=== PATIENT | female | born 1975 | race Caucasian/White ===

== ENCOUNTER 2017-11-26 21:35 | Inpatient (IN) | payer OTHER ==
[~2017-11-26] VITALS: Ht 157.5 cm; Wt 49.3 kg
[2017-11-26] MEDS ORDERED: MELA1TAB5 PO (22:00)
[2017-11-26] MEDS ORDERED: DIME1CAP2 PO (22:00)
[2017-11-26] MEDS ORDERED: ZOLP10TA PO (22:00)
[2017-11-26] MEDS ORDERED: TOPI50TA16 PO (22:00)
[2017-11-26] MEDS ORDERED: CITA20TA9 PO (22:00)
--- NOTE | 2017-11-26 23:09 | DIAGNOSTIC IMAGING REPORT ---
ABDOMINAL ULTRASOUND, RIGHT UPPER QUADRANT HISTORY: back/right-sided abdominal pain today with minimal LFT elevation. COMPARISON: None. FINDINGS: Pancreas: The pancreas demonstrates a normal echotexture. Liver: Unremarkable. Gallbladder: Mildly distended. No gallbladder wall thickening. No gallstones. Suspect a small amount of gallbladder sludge. CBD: Distended up to 8 mm. Right kidney: No hydronephrosis. IMPRESSION: 1. The common bile duct is distended up to 8 mm. This is considered abnormal for the patient's age. Consider follow-up ERCP/MRCP to exclude a distal obstruction. 2. Distended gallbladder. No gallbladder wall thickening. No gallstones. Electronically signed by: Case Niño M.D. 11/26/2017 11:08 PM Dictated Date/Time: 11/26/2017 11:06 PM
[2017-11-27] MEDS ORDERED: MoRPHine SULFATE 4 MG/ML 1 ML CARP\\VIAL IV PRN
[2017-11-27] MEDS ORDERED: IV FLUIDS COMPLETED PRN (00:30)
[2017-11-27 00:33] VITALS: BP 96/62; PULSE 70; TEMP 36.6; O2SAT 100; Ht 157.5 cm; Wt 49.3 kg
[2017-11-27] MEDS: ONDANSETRON INJ 2 MG/ML 2 ML VIAL IV PRN ×3 (00:41→22:44)
[2017-11-27 01:00] VITALS: O2SAT 100
[2017-11-27] MEDS ORDERED: SODIUM CHLORIDE 0.9% 1000ML 1,000 ML IV SCH (01:00)
[2017-11-27] MEDS ORDERED: ZOLPIDEM TARTRATE 5 MG TAB PO SCH (01:30)
[2017-11-27] MEDS ORDERED: NURSING VERBAL MED ORDER ONE ×3 (01:30→21:00)
[2017-11-27] MEDS ORDERED: INFLUENZA VIRUS QUAD VACCINE 0.5 ML SYR IM. ONE (03:00)
[2017-11-27] MEDS ORDERED: INFLUENZA ADMINISTRATION CHARGE ONE (03:00)
--- NOTE | 2017-11-27 03:02 | HISTORY & PHYSICAL EXAMINATION ---
DATE OF ADMISSION: 11/27/2017 CHIEF COMPLAINT: Abdominal pain and back pain. HISTORY OF PRESENT ILLNESS: This is a 42-year-old female who was transferred from [facility]. She had 5 episodes of what she described as violent vomiting yesterday beginning after eating at [employer]. She has no hematemesis. The nausea and vomiting resolved. Then at 5:00 this Tuesday evening she had the acute onset of what she described as back spasms. It extended along the entire length of her thoracic and lumbar spine bilaterally. It was sharp and made it difficult for her to move. The pain then radiated from her back and around in the subcostal regions bilaterally with the left side being somewhat worse than the right. There was no nausea with that. She had low grade temperature when she had her vomiting. She has not had melena or hematochezia. She denies diarrhea. She has not been constipated. There is no dysuria or hematuria. During the workup, at [facility], on Tuesday, she had a total bilirubin of 1.2 with an AST of 22, ALT of 22, and alkaline phosphatase of 88. Those labs were repeated Tuesday and her bilirubin at that time was 1.4 with an AST of 133 and ALT of 76, and alkaline phosphatase of 89. Her urinalysis both showed an increased specific gravity, but there was no blood seen. She had no imaging done. PAST MEDICAL HISTORY: For multiple sclerosis. PAST SURGICAL HISTORY: Includes a D&C, removal of cyst from her foot and a septoplasty. MEDICATIONS: At home included Celexa, Tecfidera, melatonin, Topamax and Ambien. ALLERGIES: She has no allergies. SOCIAL HISTORY: She does not smoke or chew tobacco and she drinks alcohol on rare occasion. PHYSICAL EXAMINATION: GENERAL: Reveals a well-developed, well-nourished female who appears in no acute distress. VITAL SIGNS: Blood pressure is 100/60, pulse is 80, respirations 18, temperature 37.3, pulse oximetry 96% on room air. HEENT: Reveals sclerae to be anicteric. Mucous membranes are moist. NECK: Supple, with no adenopathy. BACK: He has no spinal or CVA tenderness. LUNGS: Clear. HEART: Regular. ABDOMEN: Has normoactive bowel sounds, soft, nondistended with tenderness in the upper abdomen bilaterally with the left side predominating. EXTREMITIES: Reveal no edema. LABORATORY DATA: Gallbladder was performed here. It shows a common bile duct measuring 8 mm. The gallbladder was distended, but there was no gallbladder wall thickening. There was no cholelithiasis. ASSESSMENT AND PLAN: The patient has had abdominal discomfort. I am not sure that it was related to the nausea and vomiting since that has completely resolved. She does have mildly dilated common bile duct with mild elevation of her LFTs. An ERCP or MRCP was recommended. She continues to have mild upper abdominal pain. I am going to put her in the hospital and order an MRCP. She will be kept n.p.o. We will continue to monitor serially her liver function tests. CHANTELLE
[2017-11-27 05:38] LABS: BASO % 0.6 %; BASO ABS # 0.02 K/uL (0-0.2); EOS % 3.3 %; EOS ABS # 0.12 K/uL (0-0.5); HEMATOCRIT 26.7 % (37-47); HEMOGLOBIN 8.8 g/dL (12.0-16.0); IG# 0.01 K/uL (0.00-0.02); LYMPH % 30.6 %; LYMPH ABS # 1.11 K/uL (1.2-3.4); MEAN CORPUSCULAR HEMOGLOBIN 23.4 pg (25-34); MEAN PLATELET VOLUME 9.9 fL (7.4-10.4); MONO % 8.8 %; MONO ABS # 0.32 K/uL (0.11-0.59); NEUT % 56.4 %; NEUT ABS # 2.05 K/uL (1.4-6.5); PLATELET COUNT 215 K/uL (130-400); RED CELL DISTRIBUTION WIDTH CV 14.8 % (11.5-14.5); RED CELL DISTRIBUTION WIDTH SD 37.2 fL (36.4-46.3); WHITE BLOOD COUNT 3.63 K/uL (4.8-10.8)
[2017-11-27 06:08] LABS: CALCIUM 7.7 mg/dl (8.5-10.1); CREATININE 0.46 mg/dl (0.60-1.20); POTASSIUM 3.2 mmol/L (3.5-5.1)
[2017-11-27 06:11] LABS: TOTAL PROTEIN 5.7 gm/dl (6.4-8.2)
[2017-11-27 07:00] VITALS: BP 97/58; PULSE 89; TEMP 36.6; O2SAT 95
[2017-11-27] MEDS: PANTOprazole INJ 40 MG in SYRINGE 0 ML IV SCH (09:45)
--- NOTE | 2017-11-27 10:33 | DIAGNOSTIC IMAGING REPORT ---
MRCP CLINICAL HISTORY: Abdominal pain with mild elevated LFT's with 8mm CBD on US. COMPARISON STUDY: Right upper quadrant ultrasound November 26, 2017. TECHNIQUE: Utilizing a 1.5 Parul magnet and dedicated coil, multiplanar, multi echo imaging of the upper abdomen was performed utilizing heavily T2 weighted pulsing sequences. No intravenous contrast was administered. FINDINGS: The gallbladder is moderately distended. There is no pericholecystic fluid. No gallstones are identified on this examination. There is no intrahepatic biliary ductal dilatation. The common hepatic duct is slightly dilated, measuring 8 mm. The caliber of the common bile duct is normal. The common bile tapers normally. No choledocholithiasis is identified. There is no pancreatic ductal dilatation. There is a pancreas divisum. No peripancreatic fluid or infiltration is noted. Unenhanced images of liver, spleen, adrenal glands and kidneys are unremarkable. There is no hydronephrosis. Note is made of susceptibility artifact which projects over the distal esophagus. This is located along the right lateral aspect of the distal descending thoracic aorta. IMPRESSION: 1. No choledocholithiasis. Slight dilatation of the common hepatic duct without intrahepatic biliary ductal dilatation. Normal tapering of the common bile duct. No evidence for a significant obstruction by MRI. 2. Moderate gallbladder distention. No gallstones. No gallbladder wall thickening. No pericholecystic fluid. 3. Pancreas divisum. 4. Susceptibility artifact projecting over the distal esophagus/posterior inferior mediastinum. This may be postsurgical or represent a foreign body and could be correlated prior surgical history. Electronically signed by: Tai Haynes M.D. 11/27/2017 10:32 AM Dictated Date/Time: 11/27/2017 10:18 AM
--- NOTE | 2017-11-27 12:36 | Surgery Progress Note ---
Surgery Progress Note Date of Service Nov 27, 2017. Subjective No nausea, No vomiting Abdomen with mild abdominal discomfort Had another episode of "spasm" in her back lasdt night but it was only in the lumbar region Objective Vital Signs: Date Time Temp Pulse Resp B/P (MAP) Pulse Ox O2 Delivery O2 Flow Rate FiO2 11/27/17 08:10 Room Air 11/27/17 07:00 36.6 89 18 97/58 (71) 95 Room Air 11/27/17 01:00 100 Room Air 11/27/17 00:33 36.6 70 18 96/62 100 Room Air 11/27/17 00:20 82 102/60 98 11/26/17 23:23 80 18 100/60 96 Room Air 11/26/17 21:35 37.3 85 16 104/59 99 Room Air Abdomen: normal bowel sounds, non distended, soft, + tenderness (upper abdomen left greater than right) Laboratory Results: Results Past 24 Hours Test 11/27/17 05:16 Range/Units White Blood Count 3.63 4.8-10.8 K/uL Red Blood Count 3.76 4.2-5.4 M/uL Hemoglobin 8.8 12.0-16.0 g/dL Hematocrit 26.7 37-47 % Mean Corpuscular Volume 71.0 80-100 fL Mean Corpuscular Hemoglobin 23.4 25-34 pg Mean Corpuscular Hemoglobin Concent 33.0 32-36 g/dl Platelet Count 215 130-400 K/uL Mean Platelet Volume 9.9 7.4-10.4 fL Neutrophils (%) (Auto) 56.4 % Lymphocytes (%) (Auto) 30.6 % Monocytes (%) (Auto) 8.8 % Eosinophils (%) (Auto) 3.3 % Basophils (%) (Auto) 0.6 % Neutrophils # (Auto) 2.05 1.4-6.5 K/uL Lymphocytes # (Auto) 1.11 1.2-3.4 K/uL Monocytes # (Auto) 0.32 0.11-0.59 K/uL Eosinophils # (Auto) 0.12 0-0.5 K/uL Basophils # (Auto) 0.02 0-0.2 K/uL RDW Standard Deviation 37.2 36.4-46.3 fL RDW Coefficient of Variation 14.8 11.5-14.5 % Immature Granulocyte % (Auto) 0.3 % Immature Granulocyte # (Auto) 0.01 0.00-0.02 K/uL Basophilic Stippling 1+ Anisocytosis PRESENT Microcytosis PRESENT Sodium Level 140 136-145 mmol/L Potassium Level 3.2 3.5-5.1 mmol/L Chloride Level 112 98-107 mmol/L Carbon Dioxide Level 23 21-32 mmol/L Anion Gap 5.0 3-11 mmol/L Blood Urea Nitrogen 9 7-18 mg/dl Creatinine 0.46 0.60-1.20 mg/dl Est Creatinine Clear Calc Drug Dose 125.3 ml/min Estimated GFR () 143.2 Estimated GFR (Non- 123.6 BUN/Creatinine Ratio 19.9 10-20 Random Glucose 87 70-99 mg/dl Calcium Level 7.7 8.5-10.1 mg/dl Total Bilirubin 1.0 0.2-1 mg/dl Aspartate Amino Transf (AST/SGOT) 200 15-37 U/L Alanine Aminotransferase (ALT/SGPT) 158 12-78 U/L Alkaline Phosphatase 91 45-117 U/L Total Protein 5.7 6.4-8.2 gm/dl Albumin 3.0 3.4-5.0 gm/dl Globulin 2.7 2.5-4.0 gm/dl Albumin/Globulin Ratio 1.1 0.9-2 Diagnostic Interpretation: [~ rep ct add3]] MRCP CLINICAL HISTORY: Abdominal pain with mild elevated LFT's with 8mm CBD on US. COMPARISON STUDY: Right upper quadrant ultrasound November 26, 2017. TECHNIQUE: Utilizing a 1.5 Parul magnet and dedicated coil, multiplanar, multi echo imaging of the upper abdomen was performed utilizing heavily T2 weighted pulsing sequences. No intravenous contrast was administered. FINDINGS: The gallbladder is moderately distended. There is no pericholecystic fluid. No gallstones are identified on this examination. There is no intrahepatic biliary ductal dilatation. The common hepatic duct is slightly dilated, measuring 8 mm. The caliber of the common bile duct is normal. The common bile tapers normally. No choledocholithiasis is identified. There is no pancreatic ductal dilatation. There is a pancreas divisum. No peripancreatic fluid or infiltration is noted. Unenhanced images of liver, spleen, adrenal glands and kidneys are unremarkable. There is no hydronephrosis. Note is made of susceptibility artifact which projects over the distal esophagus. This is located along the right lateral aspect of the distal descending thoracic aorta. IMPRESSION: 1. No choledocholithiasis. Slight dilatation of the common hepatic duct without intrahepatic biliary ductal dilatation. Normal tapering of the common bile duct. No evidence for a significant obstruction by MRI. 2. Moderate gallbladder distention. No gallstones. No gallbladder wall thickening. No pericholecystic fluid. 3. Pancreas divisum. 4. Susceptibility artifact projecting over the distal esophagus/posterior inferior mediastinum. This may be postsurgical or represent a foreign body and could be correlated prior surgical history. Assessment & Plan etiology of symptomatology still under workup Biliary tree does not seem to be involved ? contribution of pancreatic divisum Anemia, has thalassemia trait Consult internal medicine and GI for opinion
[2017-11-27] MEDS: NSS + 20MEQ KCL 1000ML 1,000 ML IV SCH (13:16)
[2017-11-27 15:02] VITALS: BP 100/63; PULSE 84; TEMP 36.7; O2SAT 100
--- NOTE | 2017-11-27 15:25 | Medical Consult ---
Consultation Date of Consultation: Nov 27, 2017. Attending Physician: Nelson Barber M.D. Reason for Consultation: Abd pain History of Present Illness 42 y/o F who was a transfer here last night from the [place] ED. She was accepted by Dr. Barber of general surgery for what was thought to be an acute cholecystitis, however GB US and MRCP were both negative for this issue. Pt states she has had ongoing nausea without emesis for many years. "That is just how I live." She in not sure why she has this and has never seen GI for this issue. On Tuesday after eating at [employer], pt had several episodes of n /v throughout the night. She had no diarrhea or abd pain. This resolved yesterday, however around 5pm yesterday she noted that she started to have R sided back spasm-like pains that would radiate around to the front of her entire abd. This has not happened prior. She does not have abd pain separate from the back pain. Pt denies fever, SOB, chest pain, LE pain or swelling. UA as OSH was noted for 3+ ketones, but no blood or signs of infection. Past Medical/Surgical History MS Depression Insomnia Headaches Family History Denies hx of abd issues Social History Smoking Status: Former Smoker (quit 10 years ago) Alcohol Use: none Drug Use: none Allergies Coded Allergies: No Known Allergies (Unverified , 11/26/17) Current Inpatient Medications Current Inpatient Medications Medications (Trade) Dose Ordered Sig/Schuyler Route Start Time Stop Time Status Last Admin Dose Admin Morphine Sulfate (MoRPHine SULFATE INJ) 4 mg Q2H PRN IV 11/27/17 00:00 12/11/17 00:00 11/27/17 00:42 4 MG Ondansetron HCl (Zofran Inj) 4 mg Q6H PRN IV 11/27/17 00:00 12/27/17 00:00 11/27/17 00:41 4 MG Pantoprazole Sodium 40 mg/ Syringe 10 ml @ 5 mls/min DAILY@11 IV 11/27/17 11:00 11/30/17 11:01 11/27/17 09:45 5 MLS/MIN Potassium Chloride/Sodium Chloride 1,000 ml @ 120 mls/hr Q8H20M IV 11/27/17 13:00 2/27/18 12:59 11/27/17 13:16 120 MLS/HR Review of Systems Pertinent positives and negatives reviewed in HPI--all others negative Physical Exam Date Time Temp Pulse Resp B/P (MAP) Pulse Ox O2 Delivery O2 Flow Rate FiO2 11/27/17 15:02 36.7 84 16 100/63 (75) 100 Room Air 11/27/17 08:10 Room Air 11/27/17 07:00 36.6 89 18 97/58 (71) 95 Room Air 11/27/17 01:00 100 Room Air 11/27/17 00:33 36.6 70 18 96/62 100 Room Air 11/27/17 00:20 82 102/60 98 11/26/17 23:23 80 18 100/60 96 Room Air 11/26/17 21:35 37.3 85 16 104/59 99 Room Air General Appearance: no apparent distress, + thin Head: normocephalic, atraumatic Eyes: normal inspection, sclerae normal Respiratory/Chest: normal breath sounds, no respiratory distress Cardiovascular: regular rate, rhythm, no edema Abdomen/GI: soft, + tenderness (diffuse) Back: + right CVA tenderness Extremities/Musculoskelatal: no calf tenderness, no pedal edema Neurologic/Psych: alert, normal mood/affect, oriented x 3 Skin: normal color, warm/dry Laboratory Results Last 24 Hours Test 11/27/17 05:16 White Blood Count 3.63 K/uL Red Blood Count 3.76 M/uL Hemoglobin 8.8 g/dL Hematocrit 26.7 % Mean Corpuscular Volume 71.0 fL Mean Corpuscular Hemoglobin 23.4 pg Mean Corpuscular Hemoglobin Concent 33.0 g/dl Platelet Count 215 K/uL Mean Platelet Volume 9.9 fL Neutrophils (%) (Auto) 56.4 % Lymphocytes (%) (Auto) 30.6 % Monocytes (%) (Auto) 8.8 % Eosinophils (%) (Auto) 3.3 % Basophils (%) (Auto) 0.6 % Neutrophils # (Auto) 2.05 K/uL Lymphocytes # (Auto) 1.11 K/uL Monocytes # (Auto) 0.32 K/uL Eosinophils # (Auto) 0.12 K/uL Basophils # (Auto) 0.02 K/uL RDW Standard Deviation 37.2 fL RDW Coefficient of Variation 14.8 % Immature Granulocyte % (Auto) 0.3 % Immature Granulocyte # (Auto) 0.01 K/uL Basophilic Stippling 1+ Anisocytosis PRESENT Microcytosis PRESENT Sodium Level 140 mmol/L Potassium Level 3.2 mmol/L Chloride Level 112 mmol/L Carbon Dioxide Level 23 mmol/L Anion Gap 5.0 mmol/L Blood Urea Nitrogen 9 mg/dl Creatinine 0.46 mg/dl Est Creatinine Clear Calc Drug Dose 125.3 ml/min Estimated GFR () 143.2 Estimated GFR (Non- 123.6 BUN/Creatinine Ratio 19.9 Random Glucose 87 mg/dl Calcium Level 7.7 mg/dl Total Bilirubin 1.0 mg/dl Aspartate Amino Transf (AST/SGOT) 200 U/L Alanine Aminotransferase (ALT/SGPT) 158 U/L Alkaline Phosphatase 91 U/L Total Protein 5.7 gm/dl Albumin 3.0 gm/dl Globulin 2.7 gm/dl Albumin/Globulin Ratio 1.1 Lipase 93 U/L Assessment & Plan 42 y/o F who was transferred from [place] ED on 11/26 for abd pain Abd pain: thought to be related to GB on transfer, however US and MRCP are WNL Lipase WNL Other LFTs with slight elevation, pancreas noted to be WNL on imaging UA neg at OSH, but pt with clear and significant R CVA TTP, will repeat CBC, PRP WNL CT AP pending GI c/s pending HypoK: replace and monitor MS: Stable, pt is fully functional at this time Depression: continue home meds Anemia: chronic, hx of thalassemia NPO until imaging and GI c/s complete
--- NOTE | 2017-11-27 17:51 | Medical Consult ---
Consultation Note Date of Service Nov 27, 2017. Consultation Note Reason for consult: nausea, ? choledocholithiasis 42 yo female with PMH sig for MS. She has a h/o chronic nausea and mild upper abdominal discomfort. She was in [facility] until , when she had mild nausea. She had more severe nausea on Tuesday, associated with several episodes of vomiting. On Tuesday she developed severe pain in upper mid back that would radiate to epigastrium; pain is throughout the day, waxes and wanes, described as a spasm or cramp. She was noted to have LFT elevation which she describes as new; per her report, LFT's most recently checked in September, as part of monitoring of her MS meds. Took APAP 500 mg twice in the past 2 days; denies any other tylenol exposure. Denies NSAID use. No recent med changes. No recet risk fx for viral hep. Reports unusually dark urine for 2 days; denies pruritus. Her labs show transaminases in the 200's with normal alk phos and mildly increased total bili and normal lipase. W/u to date has included MRCP and uls which show distended gb with ? sludge and CBD 8 mm. UA was neg for bilirubin but positive for urobilinogen She received morphine in the hospital with worsening of her pain shortly thereafter. Past Medical/Surgical History MS Depression Insomnia Headaches Family History Denies hx of abd issues Social History Smoking Status: Former Smoker (quit 10 years ago) Alcohol Use: none Drug Use: none Allergies Coded Allergies: No Known Allergies (Unverified , 11/26/17) Current Inpatient Medications Current Inpatient Medications Medications (Trade) Dose Ordered Sig/Schuyler Route Start Time Stop Time Status Last Admin Dose Admin Morphine Sulfate (MoRPHine SULFATE INJ) 4 mg Q2H PRN IV 11/27/17 00:00 12/11/17 00:00 11/27/17 00:42 4 MG Ondansetron HCl (Zofran Inj) 4 mg Q6H PRN IV 11/27/17 00:00 12/27/17 00:00 11/27/17 00:41 4 MG Pantoprazole Sodium 40 mg/ Syringe 10 ml @ 5 mls/min DAILY@11 IV 11/27/17 11:00 11/30/17 11:01 11/27/17 09:45 5 MLS/MIN Potassium Chloride/Sodium Chloride 1,000 ml @ 120 mls/hr Q8H20M IV 11/27/17 13:00 12/27/17 12:59 11/27/17 13:16 120 MLS/HR Review of Systems Pertinent positives and negatives reviewed in HPI--all others negative Physical Exam Date Time Temp Pulse Resp B/P (MAP) Pulse Ox O2 Delivery O2 Flow Rate FiO2 11/27/17 15:02 36.7 84 16 100/63 (75) 100 Room Air 11/27/17 08:10 Room Air 11/27/17 07:00 36.6 89 18 97/58 (71) 95 Room Air 11/27/17 01:00 100 Room Air 11/27/17 00:33 36.6 70 18 96/62 100 Room Air 11/27/17 00:20 82 102/60 98 11/26/17 23:23 80 18 100/60 96 Room Air 11/26/17 21:35 37.3 85 16 104/59 99 Room Air General Appearance: Mild distress, thin, pleasant Head: normocephalic, atraumatic Eyes: normal inspection, sclerae normal Respiratory/Chest: normal breath sounds, no respiratory distress Cardiovascular: regular rate, rhythm, no edema Abdomen/GI: soft, + tenderness (diffuse) Back: unremarkable Extremities/Musculoskelatal: no calf tenderness, no pedal edema Neurologic/Psych: alert, normal mood/affect, oriented x 3 Skin: normal color, warm/dry Laboratory Results Last 24 Hours Test 11/27/17 05:16 11/27/17 17:05 White Blood Count 3.63 K/uL Red Blood Count 3.76 M/uL Hemoglobin 8.8 g/dL Hematocrit 26.7 % Mean Corpuscular Volume 71.0 fL Mean Corpuscular Hemoglobin 23.4 pg Mean Corpuscular Hemoglobin Concent 33.0 g/dl Platelet Count 215 K/uL Mean Platelet Volume 9.9 fL Neutrophils (%) (Auto) 56.4 % Lymphocytes (%) (Auto) 30.6 % Monocytes (%) (Auto) 8.8 % Eosinophils (%) (Auto) 3.3 % Basophils (%) (Auto) 0.6 % Neutrophils # (Auto) 2.05 K/uL Lymphocytes # (Auto) 1.11 K/uL Monocytes # (Auto) 0.32 K/uL Eosinophils # (Auto) 0.12 K/uL Basophils # (Auto) 0.02 K/uL RDW Standard Deviation 37.2 fL RDW Coefficient of Variation 14.8 % Immature Granulocyte % (Auto) 0.3 % Immature Granulocyte # (Auto) 0.01 K/uL Basophilic Stippling 1+ Anisocytosis PRESENT Microcytosis PRESENT Sodium Level 140 mmol/L Potassium Level 3.2 mmol/L Chloride Level 112 mmol/L Carbon Dioxide Level 23 mmol/L Anion Gap 5.0 mmol/L Blood Urea Nitrogen 9 mg/dl Creatinine 0.46 mg/dl Est Creatinine Clear Calc Drug Dose 125.3 ml/min Estimated GFR () 143.2 Estimated GFR (Non- 123.6 BUN/Creatinine Ratio 19.9 Random Glucose 87 mg/dl Calcium Level 7.7 mg/dl Total Bilirubin 1.0 mg/dl Aspartate Amino Transf (AST/SGOT) 200 U/L Alanine Aminotransferase (ALT/SGPT) 158 U/L Alkaline Phosphatase 91 U/L Total Protein 5.7 gm/dl Albumin 3.0 gm/dl Globulin 2.7 gm/dl Albumin/Globulin Ratio 1.1 Lipase 93 U/L Urine Color DK YELLOW Urine Appearance CLOUDY Urine pH 5.5 Urine Specific [place] 1.014 Urine Protein NEG Urine Glucose (UA) NEG Urine Ketones 2+ Urine Occult Blood 3+ Urine Nitrite NEG Urine Bilirubin NEG Urine Urobilinogen POS Urine Leukocyte Esterase NEG Assessment & Plan Back and Abd pain, incr LFT's - Unclear etiology of symptoms. Her description of colicky pain back pain that radiates to epigastrium, as well as GB distention, new LFT elevation, mildly increased CBD caliber, and h/o chronic hemolytic disease all may be c/w choledocholithiasis. DDX may include gastroenteritis, PUD, pancreatic pathology , or musculoskeletal pain involving the back. Will f/u CT to look for pancreatic pathology and consider EGD/EUS when can be arranged. - Given AST > ALT, will check CPK; also, given AST elevation, bili incerase, UA pos for urobil, and thalessemia --> check direct bili, hemolysis labs.
[2017-11-27] MEDS ORDERED: ZOLPIDEM TARTRATE 10 MG TAB PO PRN (20:00)
--- NOTE | 2017-11-27 20:30 | DIAGNOSTIC IMAGING REPORT ---
ABDOMEN AND PELVIS CT WITH IV AND ORAL CONTRAST CT DOSE: 274.78 mGy.cm HISTORY: Generalized abdominal pain. TECHNIQUE: Multiaxial CT images of the abdomen and pelvis were performed following the use of intravenous and oral contrast. A dose lowering technique was utilized adhering to the principles of ALARA. COMPARISON STUDY: MRCP 11/27/2017. FINDINGS: The lung bases are clear. No pneumoperitoneum. No pneumatosis. No suspicious lytic or blastic osseous lesions. The gallbladder and common hepatic duct remain mildly distended. Normal caliber common bile duct. The spleen, adrenal glands, and kidneys are unremarkable. No hydronephrosis. No retroperitoneal lymphadenopathy. The pancreas enhances normally. Pancreas divisum is noted. There are 2 subcentimeter hypodense lesions within the liver. These are located within the right hepatic lobe and are small to characterize. The bladder, uterus, bilateral ovaries are unremarkable. Trace pelvic free fluid. This is likely physiologic in a female. No bowel wall thickening or obstruction. Normal appendix. IMPRESSION: 1. Mildly distended gallbladder and mildly distended common hepatic duct. This remains unchanged. Normal caliber common bile duct. 2. No bowel wall thickening or obstruction. 3. Normal appendix. 4. Pancreas divisum. Electronically signed by: Case Niño M.D. 11/27/2017 8:28 PM Dictated Date/Time: 11/27/2017 7:57 PM
[2017-11-27] MEDS: ACETAMINOPHEN 325 MG TAB PO PRN (20:38)
[2017-11-27] MEDS: TOPIRAMATE 25 MG TAB PO SCH (20:39)
[2017-11-27] MEDS: CITALOPRAM 20 MG TAB PO SCH (20:39)
[2017-11-27 23:26] VITALS: BP 111/71; PULSE 72; TEMP 37.1; O2SAT 100
[2017-11-28] MEDS: NSS + 20MEQ KCL 1000ML 1,000 ML IV SCH ×3 (00:29→17:44)
[2017-11-28 07:20] VITALS: BP 97/59; PULSE 75; TEMP 36.3; O2SAT 97
[2017-11-28 07:25] LABS: BASO % 0.6 %; BASO ABS # 0.02 K/uL (0-0.2); EOS % 5.8 %; EOS ABS # 0.21 K/uL (0-0.5); HEMOGLOBIN 8.1 g/dL (12.0-16.0); LYMPH % 33.2 %; MEAN CORPUSCULAR HGB CONC 32.4 g/dl (32-36); MEAN PLATELET VOLUME 10.7 fL (7.4-10.4); MONO % 10.5 %; MONO ABS # 0.38 K/uL (0.11-0.59); NEUT % 49.9 %; PLATELET COUNT 219 K/uL (130-400); RED CELL DISTRIBUTION WIDTH CV 14.9 % (11.5-14.5); RED CELL DISTRIBUTION WIDTH SD 38.2 fL (36.4-46.3); RETIC COUNT % 2.9 % (0.5-2.0); WHITE BLOOD COUNT 3.61 K/uL (4.8-10.8)
[2017-11-28 07:56] LABS: ALBUMIN 2.6 gm/dl (3.4-5.0); ALKALINE PHOSPHATASE 75 U/L (45-117); ALT/SGPT 102 U/L (12-78); AST/SGOT 65 U/L (15-37); BLOOD UREA NITROGEN 3 mg/dl (7-18); CARBON DIOXIDE 19 mmol/L (21-32); CREATININE 0.31 mg/dl (0.60-1.20); GLUCOSE 84 mg/dl (70-99); POTASSIUM 3.4 mmol/L (3.5-5.1); SODIUM 144 mmol/L (136-145); TOTAL PROTEIN 5.1 gm/dl (6.4-8.2)
--- NOTE | 2017-11-28 10:13 | Surgery Progress Note ---
Surgery Progress Note Date of Service Nov 28, 2017. Subjective + bowel movement (2 loose stools last evening), + nausea, No vomiting No "spasm" pain today Had headache last night Objective Vital Signs: Date Time Temp Pulse Resp B/P (MAP) Pulse Ox O2 Delivery O2 Flow Rate FiO2 11/28/17 07:40 Room Air 11/28/17 07:20 36.3 75 16 97/59 (72) 97 Room Air 11/28/17 00:00 Room Air 11/27/17 23:26 37.1 72 18 111/71 (84) 100 Room Air 11/27/17 15:02 36.7 84 16 100/63 (75) 100 Room Air 11/27/17 15:00 Room Air Abdomen: normal bowel sounds, non distended, soft, + tenderness (mild tenderness in the upper abdomen) Laboratory Results: Results Past 24 Hours Test 11/27/17 17:05 11/27/17 18:25 11/28/17 06:50 Range/Units Urine Color DK YELLOW Urine Appearance CLOUDY CLEAR Urine pH 5.5 4.5-7.5 Urine Specific [place] 1.014 1.000-1.030 Urine Protein NEG NEG Urine Glucose (UA) NEG NEG Urine Ketones 2+ NEG Urine Occult Blood 3+ NEG Urine Nitrite NEG NEG Urine Bilirubin NEG NEG Urine Urobilinogen POS NEG Urine Leukocyte Esterase NEG NEG Urine WBC (Auto) 1-5 0-5 /hpf Urine RBC (Auto) >30 0-4 /hpf Urine Hyaline Casts (Auto) 0 0-5 /lpf Urine Epithelial Cells (Auto) >30 0-5 /lpf Urine Bacteria (Auto) NEG NEG Urine Pathogenic Casts 0 /lpf Total Bilirubin 0.8 0.6 0.2-1 mg/dl Direct Bilirubin 0.4 0-0.2 mg/dl Lactate Dehydrogenase 171 84-246 U/L Total Creatine Kinase 40 26-192 U/L White Blood Count 3.61 4.8-10.8 K/uL Red Blood Count 3.52 4.2-5.4 M/uL Hemoglobin 8.1 12.0-16.0 g/dL Hematocrit 25.0 37-47 % Mean Corpuscular Volume 71.0 80-100 fL Mean Corpuscular Hemoglobin 23.0 25-34 pg Mean Corpuscular Hemoglobin Concent 32.4 32-36 g/dl Platelet Count 219 130-400 K/uL Mean Platelet Volume 10.7 7.4-10.4 fL Neutrophils (%) (Auto) 49.9 % Lymphocytes (%) (Auto) 33.2 % Monocytes (%) (Auto) 10.5 % Eosinophils (%) (Auto) 5.8 % Basophils (%) (Auto) 0.6 % Neutrophils # (Auto) 1.80 1.4-6.5 K/uL Lymphocytes # (Auto) 1.20 1.2-3.4 K/uL Monocytes # (Auto) 0.38 0.11-0.59 K/uL Eosinophils # (Auto) 0.21 0-0.5 K/uL Basophils # (Auto) 0.02 0-0.2 K/uL RDW Standard Deviation 38.2 36.4-46.3 fL RDW Coefficient of Variation 14.9 11.5-14.5 % Immature Granulocyte % (Auto) 0.0 % Immature Granulocyte # (Auto) 0.00 0.00-0.02 K/uL Basophilic Stippling 1+ Ovalocytes 1+ Acanthocytes 1+ Absolute Reticulocyte Count 0.10 0.02-0.10 10^6/uL Percent Reticulocyte Count 2.9 0.5-2.0 % Sodium Level 144 136-145 mmol/L Potassium Level 3.4 3.5-5.1 mmol/L Chloride Level 115 98-107 mmol/L Carbon Dioxide Level 19 21-32 mmol/L Anion Gap 9.0 3-11 mmol/L Blood Urea Nitrogen 3 7-18 mg/dl Creatinine 0.31 0.60-1.20 mg/dl Est Creatinine Clear Calc Drug Dose 185.9 ml/min Estimated GFR () > 150.0 Estimated GFR (Non- 140.7 BUN/Creatinine Ratio 9.2 10-20 Random Glucose 84 70-99 mg/dl Calcium Level 8.0 8.5-10.1 mg/dl Aspartate Amino Transf (AST/SGOT) 65 15-37 U/L Alanine Aminotransferase (ALT/SGPT) 102 12-78 U/L Alkaline Phosphatase 75 45-117 U/L Total Protein 5.1 6.4-8.2 gm/dl Albumin 2.6 3.4-5.0 gm/dl Globulin 2.5 2.5-4.0 gm/dl Albumin/Globulin Ratio 1.0 0.9-2 Assessment & Plan Etiology of symptomatology still under workup Biliary tree does not seem to be involved CT noted, no abnormalities that would explain symptoms, gallbladder mildly distended but she has been NPO ? contribution of pancreatic divisum Anemia, has thalassemia trait, Hgb now 8 Bicarb 19, ? etiology Appreciate internal medicine and GI input For EGD today
[2017-11-28] MEDS: PANTOprazole INJ 40 MG in SYRINGE 0 ML IV SCH (10:52)
--- NOTE | 2017-11-28 11:20 | Gastroenterology Progress Note ---
Progress Note Date of Service: Nov 28, 2017 Subjective Pt evaluation today including: conversation w/ patient, physical exam, chart review, lab review, review of inpatient medication list Pt reports not having abd pain, but mild nausea, w/o vomiting. LFTs trending down. CT abd/pelvis: 1. Mildly distended gallbladder and mildly distended common hepatic duct. This remains unchanged. Normal caliber common bile duct. 2. No bowel wall thickening or obstruction. 3. Normal appendix. 4. Pancreas divisum. Review of Systems Constitutional: No fever, No chills Respiratory: No cough, No shortness of breath Cardiac: No chest pain Abdomen: + nausea, No pain, No vomiting Skin: No rash, No itch, No jaundice Medications Current Inpatient Medications Medications (Trade) Dose Ordered Sig/Schuyler Route Start Time Stop Time Status Last Admin Dose Admin Morphine Sulfate (MoRPHine SULFATE INJ) 4 mg Q2H PRN IV 11/27/17 00:00 12/11/17 00:00 11/27/17 00:42 4 MG Ondansetron HCl (Zofran Inj) 4 mg Q6H PRN IV 11/27/17 00:00 12/27/17 00:00 11/27/17 22:44 4 MG Pantoprazole Sodium 40 mg/ Syringe 10 ml @ 5 mls/min DAILY@11 IV 11/27/17 11:00 11/30/17 11:01 11/28/17 10:52 5 MLS/MIN Potassium Chloride/Sodium Chloride 1,000 ml @ 120 mls/hr Q8H20M IV 11/27/17 13:00 12/27/17 12:59 11/28/17 09:18 120 MLS/HR Acetaminophen (Tylenol Tab) 650 mg Q4H PRN PO 11/27/17 19:30 12/27/17 19:29 11/27/17 20:38 650 MG Citalopram Hydrobromide (celeXA TAB) 20 mg HS PO 11/27/17 21:00 12/27/17 20:59 11/27/17 20:39 20 MG Topiramate (Topamax Tab) 50 mg HS PO 11/27/17 21:00 12/27/17 20:59 11/27/17 20:39 50 MG Zolpidem Tartrate (Ambien Tab) 10 mg HS PRN PO 11/27/17 20:00 12/27/17 19:59 11/27/17 22:25 10 MG Objective Vital Signs Date Time Temp Pulse Resp B/P (MAP) Pulse Ox O2 Delivery O2 Flow Rate FiO2 11/28/17 07:40 Room Air 11/28/17 07:20 36.3 75 16 97/59 (72) 97 Room Air 11/28/17 00:00 Room Air 11/27/17 23:26 37.1 72 18 111/71 (84) 100 Room Air 11/27/17 15:02 36.7 84 16 100/63 (75) 100 Room Air 11/27/17 15:00 Room Air Physical Exam General Appearance: WD/WN, no apparent distress Eyes: normal inspection, PERRL, EOMI Neck: supple, no JVD, trachea midline Respiratory/Chest: normal breath sounds, no respiratory distress, no accessory muscle use Cardiovascular: regular rate, rhythm, no gallop, no murmur Abdomen: normal bowel sounds, soft, + tenderness (RUQ) Extremities: normal inspection, no pedal edema, no calf tenderness Neurologic/Psych: alert, normal mood/affect, oriented x 3 Skin: normal color, no jaundice, no rash Laboratory Results Last 24 Hours Test 11/27/17 17:05 11/27/17 18:25 11/28/17 06:50 11/28/17 10:31 Urine Color DK YELLOW Urine Appearance CLOUDY Urine pH 5.5 Urine Specific [place] 1.014 Urine Protein NEG Urine Glucose (UA) NEG Urine Ketones 2+ Urine Occult Blood 3+ Urine Nitrite NEG Urine Bilirubin NEG Urine Urobilinogen POS Urine Leukocyte Esterase NEG Urine WBC (Auto) 1-5 /hpf Urine RBC (Auto) >30 /hpf Urine Hyaline Casts (Auto) 0 /lpf Urine Epithelial Cells (Auto) >30 /lpf Urine Bacteria (Auto) NEG Urine Pathogenic Casts /lpf Total Bilirubin 0.8 mg/dl 0.6 mg/dl Direct Bilirubin 0.4 mg/dl Lactate Dehydrogenase 171 U/L Total Creatine Kinase 40 U/L White Blood Count 3.61 K/uL Red Blood Count 3.52 M/uL Hemoglobin 8.1 g/dL Hematocrit 25.0 % Mean Corpuscular Volume 71.0 fL Mean Corpuscular Hemoglobin 23.0 pg Mean Corpuscular Hemoglobin Concent 32.4 g/dl Platelet Count 219 K/uL Mean Platelet Volume 10.7 fL Neutrophils (%) (Auto) 49.9 % Lymphocytes (%) (Auto) 33.2 % Monocytes (%) (Auto) 10.5 % Eosinophils (%) (Auto) 5.8 % Basophils (%) (Auto) 0.6 % Neutrophils # (Auto) 1.80 K/uL Lymphocytes # (Auto) 1.20 K/uL Monocytes # (Auto) 0.38 K/uL Eosinophils # (Auto) 0.21 K/uL Basophils # (Auto) 0.02 K/uL RDW Standard Deviation 38.2 fL RDW Coefficient of Variation 14.9 % Immature Granulocyte % (Auto) 0.0 % Immature Granulocyte # (Auto) 0.00 K/uL Basophilic Stippling 1+ Ovalocytes 1+ Acanthocytes 1+ Absolute Reticulocyte Count 0.10 10^6/uL Percent Reticulocyte Count 2.9 % Sodium Level 144 mmol/L Potassium Level 3.4 mmol/L Chloride Level 115 mmol/L Carbon Dioxide Level 19 mmol/L Anion Gap 9.0 mmol/L Blood Urea Nitrogen 3 mg/dl Creatinine 0.31 mg/dl Est Creatinine Clear Calc Drug Dose 185.9 ml/min Estimated GFR () > 150.0 Estimated GFR (Non- 140.7 BUN/Creatinine Ratio 9.2 Random Glucose 84 mg/dl Calcium Level 8.0 mg/dl Aspartate Amino Transf (AST/SGOT) 65 U/L Alanine Aminotransferase (ALT/SGPT) 102 U/L Alkaline Phosphatase 75 U/L Total Protein 5.1 gm/dl Albumin 2.6 gm/dl Globulin 2.5 gm/dl Albumin/Globulin Ratio 1.0 Lactic Acid Level 0.7 mmol/L Assessment and Plan Pt is a 42 y/o female w c/o back radiating to epigastric pain, elevated LFTs. Abd imaging showed mildly distended gallbladder, increased CBD caliber but no signs of choledocholithiasis per MRCP. + pancreas division, lipase normal. LFTs are now trending down, she's having mild RUQ pain and mild nausea w/o vomiting. - Ok for CL diet today - Plan for outpt EGD/EUS together. - Trend LFTs, if not improved and clean EGD/EUS will plan for serologies to r/o hepatitis, viral and autoimmune liver diseases. I have seen ane examined the patient with BRYCE De whose note reflects our findings and plan. Hungry. Still with some nausea but better. Transaminases trending down. CBD was 8mm on US. Will plan for an outpatient EGD/EUS. Clears and advance as tolerated.
[2017-11-28] MEDS: ONDANSETRON INJ 2 MG/ML 2 ML VIAL IV PRN ×2 (14:40→19:30)
[2017-11-28 14:55] VITALS: BP 108/72; PULSE 63; TEMP 36.7; O2SAT 100
[2017-11-28 16:00] VITALS: O2SAT 100
[2017-11-28] MEDS ORDERED: NURSING VERBAL MED ORDER ONE (19:15)
[2017-11-28] MEDS: ACETAMINOPHEN 325 MG TAB PO PRN (19:42)
[2017-11-28] MEDS ORDERED: ONDANSETRON INJ 2 MG/ML 2 ML VIAL IV ONE (19:45)
[2017-11-28] MEDS: TOPIRAMATE 25 MG TAB PO SCH (22:20)
[2017-11-28] MEDS: CITALOPRAM 20 MG TAB PO SCH (22:20)
--- NOTE | 2017-11-28 22:42 | Progress Note ---
Subjective Date of Service: Nov 28, 2017. Subjective Pt evaluation today including: conversation w/ patient, physical exam 42 yo rolando reports feeling better today. She reports chornically having episodes of nausea for years. Patient states that her N/V from this episode is new though. Despite this, she does report having improvement in her symptoms. Review of Systems Constitutional: No fever, No chills Respiratory: No cough, No sputum Cardiac: No chest pain Abdomen: No pain, No nausea Neurologic: No memory loss, No paralysis Psychiatric: No depression symptoms Endo: No fatigue Skin: No rash, No itch All Other Systems: Reviewed and Negative Medications Current Inpatient Medications Medications (Trade) Dose Ordered Sig/Schuyler Route Start Time Stop Time Status Last Admin Dose Admin Morphine Sulfate (MoRPHine SULFATE INJ) 4 mg Q2H PRN IV 11/27/17 00:00 12/11/17 00:00 11/27/17 00:42 4 MG Ondansetron HCl (Zofran Inj) 4 mg Q6H PRN IV 11/27/17 00:00 12/27/17 00:00 11/29/17 05:31 4 MG Pantoprazole Sodium 40 mg/ Syringe 10 ml @ 5 mls/min DAILY@11 IV 11/27/17 11:00 11/30/17 11:01 11/28/17 10:52 5 MLS/MIN Potassium Chloride/Sodium Chloride 1,000 ml @ 120 mls/hr Q8H20M IV 11/27/17 13:00 12/27/17 12:59 11/29/17 02:36 120 MLS/HR Acetaminophen (Tylenol Tab) 650 mg Q4H PRN PO 11/27/17 19:30 12/27/17 19:29 11/28/17 19:42 650 MG Citalopram Hydrobromide (celeXA TAB) 20 mg HS PO 11/27/17 21:00 12/27/17 20:59 11/28/17 22:20 20 MG Topiramate (Topamax Tab) 50 mg HS PO 11/27/17 21:00 12/27/17 20:59 11/28/17 22:20 50 MG Zolpidem Tartrate (Ambien Tab) 10 mg HS PRN PO 11/27/17 20:00 12/27/17 19:59 11/27/17 22:25 10 MG Objective Vital Signs Date Time Temp Pulse Resp B/P (MAP) Pulse Ox O2 Delivery O2 Flow Rate FiO2 11/28/17 14:55 36.7 63 16 108/72 (84) 100 Room Air 11/28/17 07:40 Room Air 11/28/17 07:20 36.3 75 16 97/59 (72) 97 Room Air 11/28/17 00:00 Room Air 11/27/17 23:26 37.1 72 18 111/71 (84) 100 Room Air Physical Exam Comments: General Appearance: no apparent distress, + thin Head: normocephalic, atraumatic Eyes: normal inspection, sclerae normal Respiratory/Chest: normal breath sounds, no respiratory distress Cardiovascular: regular rate, rhythm, no edema Abdomen/GI: soft, + tenderness noted in LUQ and epigastric region. No rebound is noted. Back: no right CVA tenderness Extremities/Musculoskelatal: no calf tenderness, no pedal edema Neurologic/Psych: alert, normal mood/affect, oriented x 3 Skin: normal color, warm/dry Laboratory Results Last 24 Hours Test 11/28/17 06:50 11/28/17 10:31 White Blood Count 3.61 K/uL Red Blood Count 3.52 M/uL Hemoglobin 8.1 g/dL Hematocrit 25.0 % Mean Corpuscular Volume 71.0 fL Mean Corpuscular Hemoglobin 23.0 pg Mean Corpuscular Hemoglobin Concent 32.4 g/dl Platelet Count 219 K/uL Mean Platelet Volume 10.7 fL Neutrophils (%) (Auto) 49.9 % Lymphocytes (%) (Auto) 33.2 % Monocytes (%) (Auto) 10.5 % Eosinophils (%) (Auto) 5.8 % Basophils (%) (Auto) 0.6 % Neutrophils # (Auto) 1.80 K/uL Lymphocytes # (Auto) 1.20 K/uL Monocytes # (Auto) 0.38 K/uL Eosinophils # (Auto) 0.21 K/uL Basophils # (Auto) 0.02 K/uL RDW Standard Deviation 38.2 fL RDW Coefficient of Variation 14.9 % Immature Granulocyte % (Auto) 0.0 % Immature Granulocyte # (Auto) 0.00 K/uL Basophilic Stippling 1+ Ovalocytes 1+ Acanthocytes 1+ Absolute Reticulocyte Count 0.10 10^6/uL Percent Reticulocyte Count 2.9 % Sodium Level 144 mmol/L Potassium Level 3.4 mmol/L Chloride Level 115 mmol/L Carbon Dioxide Level 19 mmol/L Anion Gap 9.0 mmol/L Blood Urea Nitrogen 3 mg/dl Creatinine 0.31 mg/dl Est Creatinine Clear Calc Drug Dose 185.9 ml/min Estimated GFR () > 150.0 Estimated GFR (Non- 140.7 BUN/Creatinine Ratio 9.2 Random Glucose 84 mg/dl Calcium Level 8.0 mg/dl Total Bilirubin 0.6 mg/dl Aspartate Amino Transf (AST/SGOT) 65 U/L Alanine Aminotransferase (ALT/SGPT) 102 U/L Alkaline Phosphatase 75 U/L Total Protein 5.1 gm/dl Albumin 2.6 gm/dl Globulin 2.5 gm/dl Albumin/Globulin Ratio 1.0 Lactic Acid Level 0.7 mmol/L Assessment and Plan 42 y/o F who was transferred from [place] ED on 11/26 for abd pain Abd pain: thought to be related to GB on transfer, however US and MRCP are WNL Lipase WNL Pain migrated today to epigastric and LUQ Other LFTs with slight elevation but are trending done, pancreas noted to be WNL on imaging except for division finding. GI reports they would like to do an Upper endoscopy as an outpatient. UA neg at OSH, but pt with clear and significant R CVA TTP, will repeat CBC, PRP WNL Patient is tolerating clear liquid diet. Patient is ok with going home likely tomorrow. HypoK: replace and monitor MS: Stable, pt is fully functional at this time Depression: continue home meds Anemia: chronic, hx of thalassemia
[2017-11-28 23:35] VITALS: BP 111/71; PULSE 64; TEMP 36.5; O2SAT 100
[2017-11-29] MEDS: NSS + 20MEQ KCL 1000ML 1,000 ML IV SCH ×3 (02:36→19:31)
[2017-11-29] MEDS: ONDANSETRON INJ 2 MG/ML 2 ML VIAL IV PRN (05:31)
[2017-11-29 06:35] LABS: MEAN CELL VOLUME 71.4 fL (80-100); MEAN CORPUSCULAR HGB CONC 32.1 g/dl (32-36); MEAN PLATELET VOLUME 10.2 fL (7.4-10.4); PLATELET COUNT 222 K/uL (130-400); RED CELL DISTRIBUTION WIDTH CV 15.2 % (11.5-14.5); RED CELL DISTRIBUTION WIDTH SD 39.2 fL (36.4-46.3); WHITE BLOOD COUNT 3.87 K/uL (4.8-10.8)
[2017-11-29 07:07] LABS: CALCIUM 7.7 mg/dl (8.5-10.1); CREATININE 0.43 mg/dl (0.60-1.20); POTASSIUM 3.4 mmol/L (3.5-5.1)
[2017-11-29 07:10] LABS: TOTAL PROTEIN 5.6 gm/dl (6.4-8.2)
[2017-11-29 07:25] VITALS: BP 81/57; PULSE 76; TEMP 36.5; O2SAT 94
[2017-11-29] MEDS ORDERED: SODIUM CHLORIDE 0.9% 1000ML 1,000 ML IV STA (07:45)
[2017-11-29 09:06] VITALS: BP 104/64
[2017-11-29] MEDS ORDERED: GI COCKTAIL PO PRN (09:30)
[2017-11-29] MEDS ORDERED: ALUMINUM/MAGNESIUM SUSP 18 ML, LIDOCAINE HCL 2% VISCOUS SOLN 6 ML, BARCODE IDENTIFIER 1 EA PO PRN ×2 (10:00)
--- NOTE | 2017-11-29 10:33 | Gastroenterology Progress Note ---
Progress Note Date of Service: Nov 29, 2017 Subjective Pt evaluation today including: conversation w/ patient, conversation w/ family , physical exam, chart review, lab review, review of inpatient medication list Pt is still having nausea, mid epigastric pain. Tried some clear liquid diet. No BMs. LFTs normalizing. Review of Systems Constitutional: No fever, No chills Respiratory: No cough Abdomen: + pain (epigastric ), + nausea Medications Current Inpatient Medications Medications (Trade) Dose Ordered Sig/Schuyler Route Start Time Stop Time Status Last Admin Dose Admin Morphine Sulfate (MoRPHine SULFATE INJ) 4 mg Q2H PRN IV 11/27/17 00:00 12/11/17 00:00 11/27/17 00:42 4 MG Ondansetron HCl (Zofran Inj) 4 mg Q6H PRN IV 11/27/17 00:00 12/27/17 00:00 11/29/17 05:31 4 MG Potassium Chloride/Sodium Chloride 1,000 ml @ 120 mls/hr Q8H20M IV 11/27/17 13:00 12/27/17 12:59 11/29/17 02:36 120 MLS/HR Acetaminophen (Tylenol Tab) 650 mg Q4H PRN PO 11/27/17 19:30 12/27/17 19:29 11/28/17 19:42 650 MG Citalopram Hydrobromide (celeXA TAB) 20 mg HS PO 11/27/17 21:00 12/27/17 20:59 11/28/17 22:20 20 MG Topiramate (Topamax Tab) 50 mg HS PO 11/27/17 21:00 12/27/17 20:59 11/28/17 22:20 50 MG Zolpidem Tartrate (Ambien Tab) 10 mg HS PRN PO 11/27/17 20:00 12/27/17 19:59 11/27/17 22:25 10 MG Pantoprazole Sodium 40 mg/ Syringe 10 ml @ 5 mls/min BID@0900,2100 IV 11/29/17 21:00 12/29/17 20:59 Al Hydroxide/Mg Hydroxide/ Lidocaine HCl/ Barcode TID PRN PO 11/29/17 10:00 12/29/17 09:59 Objective Vital Signs Date Time Temp Pulse Resp B/P (MAP) Pulse Ox O2 Delivery O2 Flow Rate FiO2 1/30/18 09:06 104/64 (77) 11/29/17 07:25 36.5 76 16 81/57 (65) 94 Room Air 11/29/17 07:05 Room Air 11/28/17 23:35 36.5 64 16 111/71 (84) 100 Room Air 11/28/17 23:14 Room Air 11/28/17 16:00 100 Room Air 11/28/17 14:55 36.7 63 16 108/72 (84) 100 Room Air Physical Exam General Appearance: WD/WN, no apparent distress Eyes: normal inspection, PERRL, EOMI Neck: supple, no JVD, trachea midline Respiratory/Chest: normal breath sounds, no respiratory distress, no accessory muscle use Cardiovascular: regular rate, rhythm, no edema, no murmur Abdomen: normal bowel sounds, soft, + tenderness (epigastric ) Extremities: normal inspection, no pedal edema, no calf tenderness Neurologic/Psych: alert, normal mood/affect, oriented x 3 Skin: normal color, no jaundice, no rash Laboratory Results Last 24 Hours Test 11/28/17 10:31 11/29/17 06:18 Lactic Acid Level 0.7 mmol/L White Blood Count 3.87 K/uL Red Blood Count 3.92 M/uL Hemoglobin 9.0 g/dL Hematocrit 28.0 % Mean Corpuscular Volume 71.4 fL Mean Corpuscular Hemoglobin 23.0 pg Mean Corpuscular Hemoglobin Concent 32.1 g/dl RDW Standard Deviation 39.2 fL RDW Coefficient of Variation 15.2 % Platelet Count 222 K/uL Mean Platelet Volume 10.2 fL Sodium Level 142 mmol/L Potassium Level 3.4 mmol/L Chloride Level 115 mmol/L Carbon Dioxide Level 19 mmol/L Anion Gap 8.0 mmol/L Blood Urea Nitrogen 2 mg/dl Creatinine 0.43 mg/dl Est Creatinine Clear Calc Drug Dose 134.0 ml/min Estimated GFR () 146.4 Estimated GFR (Non- 126.3 BUN/Creatinine Ratio 4.2 Random Glucose 92 mg/dl Calcium Level 7.7 mg/dl Total Bilirubin 0.6 mg/dl Aspartate Amino Transf (AST/SGOT) 35 U/L Alanine Aminotransferase (ALT/SGPT) 85 U/L Alkaline Phosphatase 75 U/L Total Protein 5.6 gm/dl Albumin 3.0 gm/dl Globulin 2.6 gm/dl Albumin/Globulin Ratio 1.1 Assessment and Plan Pt is a 42 y/o female w c/o back radiating to epigastric pain, elevated LFTs. Abd imaging showed mildly distended gallbladder, increased CBD caliber but no signs of choledocholithiasis per MRCP. + pancreas division, lipase normal. LFTs are now trending down, she's having epigastric pain and mild nausea w/o vomiting. - Ok for CL diet today - Increase Protonix to 40mg BID - GI cocktail TID prn GI upset - Originally planned for EGD/EUS in outpt setting together. However in light of continued nausea, epigastric pain, will plan on EGD eval tomorrow to r/o PUD, gastritis, Hpylori. Pls keep her NPO after midnight.
[2017-11-29 12:29] VITALS: BP 112/68; PULSE 64
[2017-11-29] MEDS: ACETAMINOPHEN 325 MG TAB PO PRN ×2 (12:32→16:33)
--- NOTE | 2017-11-29 13:20 | Surgery Progress Note ---
Surgery Progress Note Date of Service Nov 29, 2017. Subjective Post OP Day: HD # 2 Sleeping on encounter. States she did not have a great night or morning, +nausea but no vomiting minimal pain, more of pressure sensation in the epigastric region Denies back spasms Not very hungry May have been the broth that caused nausea, seemed to do okay after leonelo Objective Vital Signs: Date Time Temp Pulse Resp B/P (MAP) Pulse Ox O2 Delivery O2 Flow Rate FiO2 11/29/17 12:29 64 112/68 (83) 11/29/17 09:06 104/64 (77) 11/29/17 07:25 36.5 76 16 81/57 (65) 94 Room Air 11/29/17 07:05 Room Air 11/28/17 23:35 36.5 64 16 111/71 (84) 100 Room Air 11/28/17 23:14 Room Air 11/28/17 16:00 100 Room Air 11/28/17 14:55 36.7 63 16 108/72 (84) 100 Room Air General Appearance: WD/WN, no apparent distress Head: normocephalic, atraumatic Neck: trachea midline Respiratory/Chest: no respiratory distress, no accessory muscle use Abdomen: normal bowel sounds, non distended, soft, no organomegaly, + tenderness (epigastric and RUQ on deep palpation, no rebound, guarding or peritonitis) Laboratory Results: Results Past 24 Hours Test 11/29/17 06:18 Range/Units White Blood Count 3.87 4.8-10.8 K/uL Red Blood Count 3.92 4.2-5.4 M/uL Hemoglobin 9.0 12.0-16.0 g/dL Hematocrit 28.0 37-47 % Mean Corpuscular Volume 71.4 80-100 fL Mean Corpuscular Hemoglobin 23.0 25-34 pg Mean Corpuscular Hemoglobin Concent 32.1 32-36 g/dl RDW Standard Deviation 39.2 36.4-46.3 fL RDW Coefficient of Variation 15.2 11.5-14.5 % Platelet Count 222 130-400 K/uL Mean Platelet Volume 10.2 7.4-10.4 fL Sodium Level 142 136-145 mmol/L Potassium Level 3.4 3.5-5.1 mmol/L Chloride Level 115 98-107 mmol/L Carbon Dioxide Level 19 21-32 mmol/L Anion Gap 8.0 3-11 mmol/L Blood Urea Nitrogen 2 7-18 mg/dl Creatinine 0.43 0.60-1.20 mg/dl Est Creatinine Clear Calc Drug Dose 134.0 ml/min Estimated GFR () 146.4 Estimated GFR (Non- 126.3 BUN/Creatinine Ratio 4.2 10-20 Random Glucose 92 70-99 mg/dl Calcium Level 7.7 8.5-10.1 mg/dl Total Bilirubin 0.6 0.2-1 mg/dl Aspartate Amino Transf (AST/SGOT) 35 15-37 U/L Alanine Aminotransferase (ALT/SGPT) 85 12-78 U/L Alkaline Phosphatase 75 45-117 U/L Total Protein 5.6 6.4-8.2 gm/dl Albumin 3.0 3.4-5.0 gm/dl Globulin 2.6 2.5-4.0 gm/dl Albumin/Globulin Ratio 1.1 0.9-2 Assessment & Plan 42 y/o female presented to emergency department from [facility] with c/o back pain radiating to epigastrium, elevated LFTs. Abdominal imaging showed mildly distended gallbladder, increased CBD caliber but no signs of choledocholithiasis per MRCP. + pancreas division, lipase normal. LFTs are now trending down, she's having epigastric pain and mild nausea w/o vomiting. - no leukocytosis, vitals stable - LFTS trending down, T. Bili normal - moderate nausea with clear liquids last evening - Epigastric and RUQ pain on examination Plan: GI originally planned for EGD/EUS in outpatient setting together. However in light of continued nausea, epigastric pain, they plan on EGD evaluation tomorrow to r/o PUD, gastritis, Hpylori. Protonix increased to BID Start GI cocktail TID prn Continue clear liquids repeat am labs ensure NPO after midnight encourage ambulation Discussed with Dr. Barber who is in agreement with above
[2017-11-29 15:30] VITALS: BP 107/67; PULSE 56; TEMP 36.9; O2SAT 99
[2017-11-29 16:00] VITALS: O2SAT 99
[2017-11-29] MEDS: CITALOPRAM 20 MG TAB PO SCH (21:27)
[2017-11-29] MEDS: TOPIRAMATE 25 MG TAB PO SCH (21:27)
[2017-11-29] MEDS: PANTOprazole INJ 40 MG in SYRINGE 0 ML IV SCH (21:27)
--- NOTE | 2017-11-29 22:30 | Progress Note ---
Subjective Date of Service: Nov 29, 2017. Subjective Pt evaluation today including: conversation w/ patient, physical exam Patient reports feeling much better than she did this am. This am patient was complaining of epigastric abd. pain with nausea. She states she discussed this with the basting puller who will schedule an Endoscopy for tomorrow in AM. Patient reports that pain is epigastric today, non radiating and is now mild as compared to AM when it was moderate to severe. Review of Systems Constitutional: No fever, No chills Respiratory: No cough, No sputum Cardiac: No chest pain Abdomen: No pain Neurologic: No memory loss Psychiatric: No depression symptoms Endo: No fatigue Skin: No rash All Other Systems: Reviewed and Negative Medications Current Inpatient Medications Medications (Trade) Dose Ordered Sig/Schuyler Route Start Time Stop Time Status Last Admin Dose Admin Morphine Sulfate (MoRPHine SULFATE INJ) 4 mg Q2H PRN IV 11/27/17 00:00 12/11/17 00:00 11/27/17 00:42 4 MG Ondansetron HCl (Zofran Inj) 4 mg Q6H PRN IV 11/27/17 00:00 12/27/17 00:00 11/29/17 05:31 4 MG Potassium Chloride/Sodium Chloride 1,000 ml @ 120 mls/hr Q8H20M IV 11/27/17 13:00 12/27/17 12:59 11/30/17 04:16 120 MLS/HR Acetaminophen (Tylenol Tab) 650 mg Q4H PRN PO 11/27/17 19:30 12/27/17 19:29 11/29/17 16:33 650 MG Citalopram Hydrobromide (celeXA TAB) 20 mg HS PO 11/27/17 21:00 12/27/17 20:59 11/29/17 21:27 20 MG Topiramate (Topamax Tab) 50 mg HS PO 11/27/17 21:00 12/27/17 20:59 11/29/17 21:27 50 MG Zolpidem Tartrate (Ambien Tab) 10 mg HS PRN PO 11/27/17 20:00 12/27/17 19:59 11/27/17 22:25 10 MG Pantoprazole Sodium 40 mg/ Syringe 10 ml @ 5 mls/min BID@0900,2100 IV 11/29/17 21:00 12/29/17 20:59 11/30/17 08:40 5 MLS/MIN Al Hydroxide/Mg Hydroxide/ Lidocaine HCl/ Barcode TID PRN PO 11/29/17 10:00 12/29/17 09:59 Objective Vital Signs Date Time Temp Pulse Resp B/P (MAP) Pulse Ox O2 Delivery O2 Flow Rate FiO2 11/29/17 16:00 99 Room Air 11/29/17 15:30 36.9 56 18 107/67 (80) 99 Room Air 11/29/17 12:29 64 112/68 (83) 11/29/17 09:06 104/64 (77) 11/29/17 07:25 36.5 76 16 81/57 (65) 94 Room Air 11/29/17 07:05 Room Air 11/28/17 23:35 36.5 64 16 111/71 (84) 100 Room Air 11/28/17 23:14 Room Air Physical Exam Comments: General Appearance: no apparent distress, + thin Head: normocephalic, atraumatic Eyes: normal inspection, sclerae normal Respiratory/Chest: normal breath sounds, no respiratory distress Cardiovascular: regular rate, rhythm, no edema Abdomen/GI: soft, + tenderness in epigastric region. No rebound is noted. Back: no right CVA tenderness Extremities/Musculoskelatal: no calf tenderness, no pedal edema Neurologic/Psych: alert, normal mood/affect, oriented x 3 Skin: normal color, warm/dry Laboratory Results Last 24 Hours Test 11/29/17 06:18 White Blood Count 3.87 K/uL Red Blood Count 3.92 M/uL Hemoglobin 9.0 g/dL Hematocrit 28.0 % Mean Corpuscular Volume 71.4 fL Mean Corpuscular Hemoglobin 23.0 pg Mean Corpuscular Hemoglobin Concent 32.1 g/dl RDW Standard Deviation 39.2 fL RDW Coefficient of Variation 15.2 % Platelet Count 222 K/uL Mean Platelet Volume 10.2 fL Sodium Level 142 mmol/L Potassium Level 3.4 mmol/L Chloride Level 115 mmol/L Carbon Dioxide Level 19 mmol/L Anion Gap 8.0 mmol/L Blood Urea Nitrogen 2 mg/dl Creatinine 0.43 mg/dl Est Creatinine Clear Calc Drug Dose 134.0 ml/min Estimated GFR () 146.4 Estimated GFR (Non- 126.3 BUN/Creatinine Ratio 4.2 Random Glucose 92 mg/dl Calcium Level 7.7 mg/dl Total Bilirubin 0.6 mg/dl Aspartate Amino Transf (AST/SGOT) 35 U/L Alanine Aminotransferase (ALT/SGPT) 85 U/L Alkaline Phosphatase 75 U/L Total Protein 5.6 gm/dl Albumin 3.0 gm/dl Globulin 2.6 gm/dl Albumin/Globulin Ratio 1.1 Assessment and Plan 42 y/o F who was transferred from [facility] on 11/26 for abd pain Abd pain: thought to be related to GB on transfer, however US and MRCP are WNL will keep NPO after midnight As patient will have EGD tomorrow AM due to worsening pain this past morning pain overnight has improved. Lipase WNL LFTs continue to trend down. pancreas noted to be WNL on imaging except for division finding. CBC, PRP WNL HypoK: replace and monitor MS: Stable, pt is fully functional at this time Depression: continue home meds Anemia: chronic, hx of thalassemia
[2017-11-29 23:25] VITALS: BP 120/77; PULSE 53; TEMP 36.5; O2SAT 99
[2017-11-30] VITALS (8 sets, daily range): BP systolic 118–127; BP diastolic 73–80; PULSE 50–56; TEMP 36.5–37; O2SAT 98–100
[2017-11-30] MEDS: NSS + 20MEQ KCL 1000ML 1,000 ML IV SCH ×2 (04:16→14:49)
[2017-11-30 06:51] LABS: HEMATOCRIT 25.2 % (37-47); MEAN CELL VOLUME 71.8 fL (80-100); MEAN CORPUSCULAR HEMOGLOBIN 22.8 pg (25-34); MEAN CORPUSCULAR HGB CONC 31.7 g/dl (32-36); MEAN PLATELET VOLUME 10.7 fL (7.4-10.4); PLATELET COUNT 243 K/uL (130-400); RED CELL DISTRIBUTION WIDTH SD 38.9 fL (36.4-46.3); WHITE BLOOD COUNT 3.84 K/uL (4.8-10.8)
[2017-11-30 07:30] LABS: ALBUMIN 2.7 gm/dl (3.4-5.0); ALT/SGPT 67 U/L (12-78); BLOOD UREA NITROGEN 2 mg/dl (7-18); CALCIUM 7.5 mg/dl (8.5-10.1); CARBON DIOXIDE 19 mmol/L (21-32); CREATININE 0.39 mg/dl (0.60-1.20); GLUCOSE 77 mg/dl (70-99); POTASSIUM 3.7 mmol/L (3.5-5.1); SODIUM 144 mmol/L (136-145)
[2017-11-30 07:33] LABS: ALKALINE PHOSPHATASE 64 U/L (45-117); AST/SGOT 29 U/L (15-37); TOTAL PROTEIN 5.1 gm/dl (6.4-8.2)
--- NOTE | 2017-11-30 07:51 | Surgery Progress Note ---
Surgery Progress Note Date of Service Nov 30, 2017. Subjective Feels much better today Almost no nausea Upper abdominal pain persists but decreased Objective Vital Signs: Date Time Temp Pulse Resp B/P (MAP) Pulse Ox O2 Delivery O2 Flow Rate FiO2 11/29/17 23:40 Room Air 11/29/17 23:25 36.5 53 17 120/77 (91) 99 Room Air 11/29/17 16:00 99 Room Air 11/29/17 15:30 36.9 56 18 107/67 (80) 99 Room Air 11/29/17 12:29 64 112/68 (83) 11/29/17 09:06 104/64 (77) Abdomen: normal bowel sounds, non distended, + tenderness (decreased) Laboratory Results: Results Past 24 Hours Test 11/30/17 05:36 Range/Units White Blood Count 3.84 4.8-10.8 K/uL Red Blood Count 3.51 4.2-5.4 M/uL Hemoglobin 8.0 12.0-16.0 g/dL Hematocrit 25.2 37-47 % Mean Corpuscular Volume 71.8 80-100 fL Mean Corpuscular Hemoglobin 22.8 25-34 pg Mean Corpuscular Hemoglobin Concent 31.7 32-36 g/dl RDW Standard Deviation 38.9 36.4-46.3 fL RDW Coefficient of Variation 15.0 11.5-14.5 % Platelet Count 243 130-400 K/uL Mean Platelet Volume 10.7 7.4-10.4 fL Sodium Level 144 136-145 mmol/L Potassium Level 3.7 3.5-5.1 mmol/L Chloride Level 116 98-107 mmol/L Carbon Dioxide Level 19 21-32 mmol/L Anion Gap 9.0 3-11 mmol/L Blood Urea Nitrogen 2 7-18 mg/dl Creatinine 0.39 0.60-1.20 mg/dl Est Creatinine Clear Calc Drug Dose 147.7 ml/min Estimated GFR () > 150.0 Estimated GFR (Non- 130.5 BUN/Creatinine Ratio 4.6 10-20 Random Glucose 77 70-99 mg/dl Calcium Level 7.5 8.5-10.1 mg/dl Total Bilirubin 0.6 0.2-1 mg/dl Aspartate Amino Transf (AST/SGOT) 29 15-37 U/L Alanine Aminotransferase (ALT/SGPT) 67 12-78 U/L Alkaline Phosphatase 64 45-117 U/L Total Protein 5.1 6.4-8.2 gm/dl Albumin 2.7 3.4-5.0 gm/dl Globulin 2.4 2.5-4.0 gm/dl Albumin/Globulin Ratio 1.1 0.9-2 Assessment & Plan Etiology of symptomatology still under workup Biliary tree does not seem to be involved CT again noted, no abnormalities that would explain symptoms, gallbladder mildly distended but she has been NPO ? contribution of pancreatic divisum Anemia, has thalassemia trait, Hgb now 8 Bicarb remains 19, ? etiology, lactic acid normal For EGD/EUS today
[2017-11-30] MEDS: PANTOprazole INJ 40 MG in SYRINGE 0 ML IV SCH (08:40)
[2017-11-30] MEDS ORDERED: PROPOFOL IV EMULSION 10 MG/ML 20 ML VIAL IV ONE (10:32)
[2017-11-30] MEDS ORDERED: LIDOCAINE HCL 2% 2 ML VIAL (20MG/ML) ONE (10:32)
--- NOTE | 2017-11-30 10:34 | Endo History and Physical ---
History & Physical Date of Service: Nov 30, 2017. Chief Complaint: nausea Referring Physician: Suki History of Present Illness nausea Past Surgical History Hx Cardiac Surgery: No Hx Abdominal Surgery: No Hx Post-Op Nausea and Vomiting: No Hx Cancer Surgery: No Hx Orthopedic: Yes (1997 Left Foot bone spur removal ) Social History Smoking Status: Former Smoker (quit 10 years ago) Hx Substance Use: No Hx Alcohol Use: Yes (Socially ) Allergies Coded Allergies: No Known Allergies (Unverified , 11/26/17) Current Medications Reported Home Medications Medications Dose Route/Sig Max Daily Dose Days Date Category Kp Melatonin (Melatonin) 3 Mg Tab 1 Tab PO HS PRN 30 11/26/17 Reported Topamax (Topiramate) 50 Mg Tab 50 Mg PO HS 11/26/17 Reported Celexa (Citalopram Hydrobromide) 20 Mg Tab 20 Mg PO HS 11/26/17 Reported Ambien (Zolpidem Tartrate) 10 Mg Tab 1 Tab PO HS PRN 30 11/26/17 Reported Tecfidera (Dimethyl Fumarate) 240 Mg Cap 1 Cap PO BIDM 11/26/17 Reported Vital Signs Weight (Kilograms): 49.300 Height (Feet): 5 Height (Inches): 2.00 Date Time Temp Pulse Resp B/P (MAP) Pulse Ox O2 Delivery O2 Flow Rate FiO2 11/30/17 10:17 36.5 60 18 145/82 (103) 100 Room Air 11/30/17 10:10 36 11/30/17 08:45 Room Air 11/30/17 08:38 98 Room Air 11/30/17 08:13 36.5 50 18 122/80 (94) 98 Room Air 11/29/17 23:40 Room Air 11/29/17 23:25 36.5 53 17 120/77 (91) 99 Room Air 11/29/17 16:00 99 Room Air 11/29/17 15:30 36.9 56 18 107/67 (80) 99 Room Air 11/29/17 12:29 64 112/68 (83) Physical Exam General Appearance: WD/WN, no apparent distress Assessment and Plan EGD today
[2017-11-30] MEDS ORDERED: FENTANYL CITRATE INJ 50 MCG/1 ML 2 ML VIAL ONE (10:36)
--- NOTE | 2017-11-30 10:53 | GI REPORT ---
Procedure Date: 11/30/2017 10:37 AM Procedure: Upper GI endoscopy Indications: Nausea Medicines: Propofol per Anesthesia Complications: No immediate complications. Estimated blood loss: None. Estimated Blood Loss: Estimated blood loss: none. Procedure: Pre-Anesthesia Assessment: - Prior to the procedure, a History and Physical was performed, and patient medications, allergies and sensitivities were reviewed. The patient's tolerance of previous anesthesia was reviewed. - The risks and benefits of the procedure and the sedation options and risks were discussed with the patient. All questions were answered and informed consent was obtained. - Patient identification and proposed procedure were verified prior to the procedure by the physician and the nurse. The procedure was verified in the pre-procedure area in the procedure room. - Mental Status Examination: alert and oriented. Airway Examination: normal oropharyngeal airway and neck mobility. Respiratory Examination: clear to auscultation. CV Examination: normal. Abdominal Examination: bowel sounds present, abdomen soft and non-tender, no masses or organomegaly noted. - ASA Grade Assessment: II - A patient with mild systemic disease. After obtaining informed consent, the endoscope was passed under direct vision. Throughout the procedure, the patient's blood pressure, pulse, and oxygen saturations were monitored continuously. The Scope was introduced through the mouth, and advanced to the third part of duodenum. The upper GI endoscopy was accomplished without difficulty. The patient tolerated the procedure well. Findings: The esophagus was normal. The stomach was normal. The examined duodenum was normal. Impression: - Normal esophagus. - Normal stomach. - Normal examined duodenum. - No specimens collected. Recommendation: - Advance diet as tolerated. - Return patient to hospital [facility] for possible discharge same day. Connie Gustafson D.O. Connie Gustafson, 11/30/2017 10:52:54 AM This report has been signed electronically. Note Initiated On: 11/30/2017 10:37 AM I attest to the content of the Intraoperative Record and orders documented therein, exceptions below
--- NOTE | 2017-11-30 12:18 | Anesthesiology Progress Note ---
Anesthesia Post Op Note Date & Time Nov 30, 2017 at 12:18 Vital Signs Pain Intensity: 0 Vital Signs Past 12 Hours Date Time Temp Pulse Resp B/P (MAP) Pulse Ox O2 Delivery O2 Flow Rate FiO2 11/30/17 12:10 36.7 55 18 122/75 (91) 100 11/30/17 11:25 51 20 123/82 (96) 100 Room Air 11/30/17 11:10 51 20 115/68 (84) 100 Room Air 11/30/17 10:53 58 16 111/55 (73) 99 Room Air 11/30/17 10:17 36.5 60 18 145/82 (103) 100 Room Air 11/30/17 10:10 36 11/30/17 08:45 Room Air 11/30/17 08:38 98 Room Air 11/30/17 08:13 36.5 50 18 122/80 (94) 98 Room Air Notes Mental Status: alert / awake / arousable, participated in evaluation Pt Amnestic to Procedure: Yes Nausea / Vomiting: adequately controlled Pain: adequately controlled Airway Patency, RR, SpO2: stable & adequate BP & HR: stable & adequate Hydration State: stable & adequate Anesthetic Complications: no major complications apparent
--- NOTE | 2017-11-30 15:25 | Discharge Instructions ---
Discharge Instructions Date of Service Nov 30, 2017. Admission Reason for Admission: Abdominal Pain Discharge Discharge Diagnosis / Problem: Gallbladder distention , sludge Discharge Goals Goal(s): Decrease discomfort, Improve function Activity Recommendations Activity Limitations: resume your previous activity Lifting Limitations: none Exercise/Sports Limitations: gradually increase as tolerated May Resume Sexual Activity: when tolerated Shower/Bathe: no limitations Driving or Machine Use: resume 1 day after discharge (as long as you are not taking any narcotic pain medication) . Instructions / Follow-Up Instructions / Follow-Up Advised to stick to a low fat diet. Avoid fatty/greasy foods Follow-up in surgical office in 2 weeks, please call office at [phone] to make an appointment with Dr. Barber Current Hospital Diet Patient's current hospital diet: Clear Liquid Diet Discharge Diet Recommended Diet: Regular Diet Procedures Procedures Performed: EGD Pending Studies Studies pending at discharge: no Medical Emergencies . Who to Call and When: Medical Emergencies: If at any time you feel your situation is an emergency, please call 911 immediately. . Non-Emergent Contact Non-Emergency issues call your: Primary Care Provider, Surgeon Call Non-Emergent contact if: you have a fever, temperature is above 100.5, your pain is not controlled, your pain is worsening, your pain is unusual for you, your pain is concerning you . "Provider Documentation" section prepared by Concetta Najera. . VTE Core Measure Inpt VTE Proph given/why not?: SCD's [place] Drug Monitoring Program Search Results: patient reviewed within database, no issues identified
--- NOTE | 2017-12-05 15:35 | Discharge Summary ---
Discharge Summary Dates Admission Date / Time: Nov 29, 2017 at 13:24 Discharge Date: Nov 30, 2017 Dispostion / Condition Discharge Disposition: Home Condition at Discharge: Good Principal Diagnosis (1) Abdominal pain (2) Back pain (3) Elevated LFTs (4) Nausea & vomiting Consultations / Procedures Consultations: Hospitalist Gastroenterology Procedures: EGD Pending Studies / Follow-Up None Medication Reconciliation Continued Medications: Citalopram Hydrobromide (Celexa) 20 Mg Tab 20 MG PO HS, TAB Dimethyl Fumarate (Tecfidera) 240 Mg Cap 1 CAP PO BIDM Melatonin (Kp Melatonin) 3 Mg Tab 1 TAB PO HS PRN for Sleep for 30 Days, #30 TAB 2 Refills Topiramate (Topamax) 50 Mg Tab 50 MG PO HS, TAB Zolpidem Tartrate (Ambien) 10 Mg Tab 1 TAB PO HS PRN for Sleep for 30 Days, #30 TAB 5 Refills Admission HPI Per the Admitting provider: HISTORY OF PRESENT ILLNESS: This is a 42-year-old female who was transferred from [facility] Emergency Room. She had 5 episodes of what she described as violent vomiting yesterday beginning after eating at [employer]. She has no hematemesis. The nausea and vomiting resolved. Then at 5:00 this Tuesday evening she had the acute onset of what she described as back spasms. It extended along the entire length of her thoracic and lumbar spine bilaterally. It was sharp and made it difficult for her to move. The pain then radiated from her back and around in the subcostal regions bilaterally with the left side being somewhat worse than the right. There was no nausea with that. She had low grade temperature when she had her vomiting. She has not had melena or hematochezia. She denies diarrhea. She has not been constipated. There is no dysuria or hematuria. During the workup, at [place], on Tuesday, she had a total bilirubin of 1.2 with an AST of 22, ALT of 22, and alkaline phosphatase of 88. Those labs were repeated Tuesday and her bilirubin at that time was 1.4 with an AST of 133 and ALT of 76, and alkaline phosphatase of 89. Her urinalysis both showed an increased specific gravity, but there was no blood seen. She had no imaging done. Hospital Course (1) Abdominal pain Patient was admitted to medical/surgical floor for observation and kept NPO. MRCP showed no signs of acute cholecystitis, obstruction, or dilatation of the common bile duct. Her pain was improved and nausea and vomiting improved on hospital day #1. She did have another "back spasm". LFTs slowly improving. T. Bilirubin was normal. Gi was consulted which recommended outpatient EGD/EUS and to advance diet as tolerated. Patient had moderate nausea with clear liquids evening of hospital day # 2 and therefore GI recommended inpatient EGD to rule out peptic ulcer disease vs h. pylori. Patient underwent EGD which was unremarkable and no biopsies were taken. LFTs normalized. Minimal abdominal pain and nausea improved vastly on day of EGD. After EGD diet was advanced to clear liquids in which she tolerated and patient was discharged home in stable condition. She is to follow up with Dr. Barber in 2 weeks and may require outpatient EUS and discussion of laparoscopic cholecystectomy. (2) Nausea & vomiting Resolved on hospital day # 1. Recurrent on Hospital day # 2 and # 3 . Please see above. (3) Elevated LFTs Please see above Discharge Instructions as given to patient Copies To Primary Care Provider: Kendall Marin PA-C.
--- NOTE | 2017-12-07 06:17 | EDITING REQUIRED CODING QUERY ---
CODING QUERY To promote full compliance with coding requirements relating to patient care, provider participation is requested in all cases of document preparation specialist uncertainty. Please assist us with the question(s) below: Coding Question(s): Patient presents with nausea/vomiting, abdominal pain after eating at local restaurant. EGD benign. Liver function tests increased. Gallbladder with distention/sludge. Please document, if known or suspected, the etiology of patient's abdominal pain. Thanks for your help! [facility] Physician's Response(s): Etiology wasn't definitively obtained Principal Diagnosis: "_that condition established after study, to be chiefly responsible for occasioning the admission of the patient to the hospital for care." Co-Existing Principal Diagnosis: "_when two or more diagnoses equally meet the criteria for principal diagnosis as determined by the circumstances of admission, diagnostic work up, and/or therapy provided, and the Alphabetic Index, Tabular List, or another coding guideline does not provide sequencing direction, any one of the diagnoses may be sequenced first." "When the physician has documented what appears to be a current diagnosis in the body of the record, but has not included the diagnosis in the final diagnostic statement, the physician should be asked whether the diagnosis should be added." (Source [facility]oding [facility] 2 QTR90. p3-4)
== END 2017-11-30 19:00 | disposition home or self-care (01) | DRG 392 ==
LOC: C.EDC 21:43 → C.3E 11-27 00:03 → ENRESERV 11-27 00:15 → OBSVTOIN 11-29 13:24
PROVIDERS: ADMIT Surgery; ATTEND Surgery
PROC: 0DJ08ZZ Inspection of Upper Intestinal Tract, Via Natural or Artificial Opening Endoscopic (ICD-10-PCS; principal; 2017-11-30 10:06)
DX: R10.9 Unspecified abdominal pain (principal); Q45.3 Other congenital malformations of pancreas and pancreatic duct; R79.89 Other specified abnormal findings of blood chemistry; G35 Multiple sclerosis; G47.00 Insomnia, unspecified; D56.9 Thalassemia, unspecified; F29 Unspecified psychosis not due to a substance or known physiological condition; Z87.891 Personal history of nicotine dependence; R11.2 Nausea with vomiting, unspecified; M62.830 Muscle spasm of back